=== PATIENT | female | born 1985 | race Asian ===

== ENCOUNTER 2022-03-30 16:28 | Observation (INO) | payer BC, OTHER ==
[~2022-03-30] VITALS: Ht 162.6 cm; Wt 74.8 kg
[2022-03-30] MEDS: LR 1,000 ML IV SCH (18:32)
[2022-03-31] MEDS: LR 1,000 ML IV SCH (06:28)
== END 2022-03-31 15:20 | disposition home or self-care (01) ==
LOC: SPU 16:28
PROVIDERS: ADMIT Specialist; ATTEND Specialist
DX: O36.8330 Maternal care for abnormalities of the fetal heart rate or rhythm, third trimester, not applicable or unspecified (principal); Z3A.36 36 weeks gestation of pregnancy
CPT/HCPCS: 96360; 96361 ×2; 81002; G0378 ×2

== ENCOUNTER 2022-04-06 17:40 | Observation (INO) | payer OTHER ==
[~2022-04-06] VITALS: Ht 162.6 cm; Wt 65.8 kg
== END 2022-04-06 19:30 | disposition home or self-care (01) ==
LOC: SPU 17:40
PROVIDERS: ADMIT Specialist; ATTEND Specialist
DX: O62.9 Abnormality of forces of labor, unspecified (principal); Z3A.37 37 weeks gestation of pregnancy
CPT/HCPCS: 82962; G0379; G0378